=== PATIENT | female | born 2000 | race African-American/Black ===

== ENCOUNTER 2021-02-11 16:43 | Observation (INO) | payer MEDICAID ==
[~2021-02-11] VITALS: Ht 167.6 cm; Wt 53.1 kg
[2021-02-11 19:37] LABS: BASOPHILS % 0.4 % (0.0-2.0); EOSINOPHILS % 1.5 % (0.0-5.0); HEMATOCRIT. 38.2 % (36.0-48.0); HEMOGLOBIN. 12.9 g/dL (12.0-16.0); LYMPHOCYTES % 19.2 % (20.0-50.0); MEAN CORPUSCULAR HEMOGLOBIN 30.9 pg (28.0-32.0); MEAN CORPUSCULAR VOLUME 91.4 fL (81.0-99.0); MEAN PLATELET VOLUME 8.2 fl (7.4-10.4); MONOCYTES % 13.6 % (2.0-8.0); NEUTROPHILS % 65.3 % (40.0-76.0); PLATELET 319 x1000/uL (130-400); RED BLOOD CELL COUNT 4.18 mill/uL (4.2-5.4); RED CELL DISTRIBUTION WIDTH 17.2 % (11.6-14.6)
[2021-02-11 19:40] LABS: CHLORIDE 104 mEq/L (98-107)
[2021-02-11 20:05] LABS: B-HCG QUANTITATIVE 70383 mIU/mL (<3)
[2021-02-12 00:29] LABS: CLARITY URINE CLEAR (CLEAR); COLOR URINE YELLOW (YELLOW); KETONES URINE TRACE (NEGATIVE); LEUKOCYTE ESTERASE URINE NEGATIVE (NEGATIVE); NITRITE URINE NEGATIVE (NEGATIVE); OCCULT BLOOD URINE 2+ (NEGATIVE); PH URINE 5.5 (4.5-8.0); PROTEIN URINE NEGATIVE (NEGATIVE); SPECIFIC GRAVITY URINE 1.021 (1.005-1.030); UROBILINOGEN URINE 0.2 E.U./dL (0.2-1.0)
[2021-02-12 01:47] VITALS: BP 111/65
[2021-02-12] MEDS ORDERED: DEXT 5%/LACTATED RINGERS 1,000 ML IV NR (03:00)
[2021-02-12 03:05] LABS: BASOPHILS % 0.4 % (0.0-2.0); HEMATOCRIT. 34.2 % (36.0-48.0); HEMOGLOBIN. 11.7 g/dL (12.0-16.0); LYMPHOCYTES % 22.8 % (20.0-50.0); MEAN CORPUSCULAR HEMOGLOBIN 31.3 pg (28.0-32.0); MEAN CORPUSCULAR VOLUME 91.8 fL (81.0-99.0); MEAN PLATELET VOLUME 8.4 fl (7.4-10.4); MONOCYTES % 10.8 % (2.0-8.0); PLATELET 265 x1000/uL (130-400); RED BLOOD CELL COUNT 3.73 mill/uL (4.2-5.4); RED CELL DISTRIBUTION WIDTH 17.2 % (11.6-14.6)
[2021-02-12 03:14] LABS: PARTIAL THROMBOPLASTIN TIME 29.5 sec (23.4-31.0)
[2021-02-12 04:00] VITALS: BP 116/71
[2021-02-12] MEDS ORDERED: MIDAZOLAM HCL 2 MG/2 ML VIAL ONE (06:58)
[2021-02-12] MEDS ORDERED: ONDANSETRON HCL 4MG/2ML INJ ONE (06:58)
[2021-02-12] MEDS ORDERED: FENTANYL CITRATE/PF 50MCG/ML 2ML VIAL ONE (06:58)
[2021-02-12] MEDS ORDERED: PROPOFOL 200MG/20ML VIAL IV ONE (06:58)
[2021-02-12] MEDS ORDERED: LIDOCAINE HCL/PF 1% 10 MG/ML 5ML VIAL ONE (06:58)
[2021-02-12] MEDS ORDERED: KETOROLAC 30MG/ML VIAL ONE (07:08)
[2021-02-12] MEDS ORDERED: IBUPROFEN 800MG TABLET PO PRN (07:45)
[2021-02-12 12:00] VITALS: BP 100/52
[2021-02-12 16:00] VITALS: BP 111/61
[2021-02-12 16:34] VITALS: BP 111/61
== END 2021-02-12 18:26 | disposition home or self-care (01) ==
LOC: ER 16:43 → 6EST 21:20 → INTOOBSV 21:20 → ENRESERV 23:36
PROVIDERS: ADMIT Obstetrics & Gynecology; ATTEND Obstetrics & Gynecology
DX: O02.1 Missed abortion (principal); Z3A.01 Less than 8 weeks gestation of pregnancy; Z20.822 Contact with and (suspected) exposure to COVID-19
CPT/HCPCS: 36415; 59820; 76801; 76817; 80053; 81003; 84702; 85025; 85610; 85730; 86850; 86900; 86901; 87426; 88305; 99284; C1893; G0378; J1885; J2250; J2405; J2704; J3010; J3490; J7040; 99285